=== PATIENT | female | born 1985 | race Caucasian/White ===

== ENCOUNTER → 2022-11-12 10:06 | Outpatient (CLI) | payer MEDICAID, SELFPAY ==
--- NOTE | 2022-11-12 10:30 | XR_ITS ---
FINAL REPORT CLINICAL HISTORY: Neck pain FINDINGS: CERVICAL SPINE Seven views were obtained including flexion and extension views. There is no acute fracture. There is no malalignment. There is no abnormal movement with flexion or extension. The disc spaces are preserved. There is no soft tissue abnormality. IMPRESSION: No acute bony abnormality. No abnormal movement with flexion or extension. Reviewed, Interpreted and Dictated by Leandro Rubi III, MD Transcribed by Keyana Billingsley Authenticated and . [facility]
[2022-11-16 22:04] LABS: Antinuclear Antibodies (ANA) NEGATIVE
== END ==
PROVIDERS: PCP Nurse Practitioner Family; Visit Provider Nurse Practitioner Family
DX: G47.9 Sleep disorder, unspecified (principal); G43.109 Migraine with aura, not intractable, without status migrainosus; G44.40 Drug-induced headache, not elsewhere classified, not intractable; G44.86 Cervicogenic headache; F41.9 Anxiety disorder, unspecified; G89.29 Other chronic pain; M54.2 Cervicalgia; R53.83 Other fatigue; Z72.0 Tobacco use
CPT/HCPCS: 36415; 72052; 86038; G0399

== ENCOUNTER 2022-12-04 14:00 | Outpatient (RCR) | payer MEDICAID, SELFPAY ==
--- NOTE | 2022-11-04 17:29 | HMH.PTOPEV ---
PT Outpatient Evaluation Rehab PT Outpatient Evaluation Start: 11/04/22 17:15 Freq: Status: Active Protocol: Document 11/04/22 17:16 JOYCELYN (Rec: 11/04/22 17:28 JOYCELYN [id number]) E-signed By Will Powell, PT Outpatient Therapy Subjective History Subjective History Patient is a 37 year old female presenting to outpatient PT with reports of chronic cervical spine pain with associated cervicogenic headaches of insidious onset starting approx 2 years ago. Patient reports daily frequency of headaches. Patient reports that most recent imaging indicates pseudotumor (no reports on file). Comorbidites include hx of HTN, cholecystectomy and anxiety. Chief Complaint Pain,Stiff Symptom Type Throb Symptoms Relieved By Rest/Positioning,Heat,OTC Meds Symptoms Aggravated By Physical Activity,Lifting Prior Functional Limitations None Current Functional Limitations Reaching,Lifting,Housework Symptom Description Constant but Variable Level of pain today (0-10) 2 Pain scale - at its best (0-10) 2 Pain scale - at its worst (0-10) 5 Cervical Eval Palpation Cervical Muscles R Suboccipital,L Suboccipital Posture Head/C-Spine Posture Sitting Position C-Spine Flattened Head/C-Spine Posture Standing Position C-Spine Flattened Flexibility Deficits Upper Trapezius Muscle Length (R) Mild Tightness,(L) Mild Tightness Pectoralis Minor Muscle Length (R) Mild Tightness,(L) Mild Tightness Passive Joint Mobility Cervical PIVM WNL: R OA L OA R AA L AA R C2/3 L C2/3 R C3/4 L C3/4 R C4/5 L C4/5 R C5/6 L C5/6 R C6/7 L C6/7 R C7/T1 L C7/T1 AROM Cervical Spine Extension Active Range of 54 Motion (degrees) Cervical Spine Flexion Active Range of 42 Motion (degrees)
== END 2022-12-04 14:05 | disposition home or self-care (01) ==
LOC: PT 14:00
PROVIDERS: Visit Provider Nurse Practitioner Family
DX: G43.109 Migraine with aura, not intractable, without status migrainosus (principal); M54.2 Cervicalgia; G44.86 Cervicogenic headache; G89.29 Other chronic pain; F41.9 Anxiety disorder, unspecified
CPT/HCPCS: 97010; 97014; 97035; 97110; 97140; 97163; G0283

== ENCOUNTER 2023-11-06 09:43 | Emergency (ER) | payer MEDICAID, SELFPAY ==
[2023-11-06 11:15] VITALS: BP 114/86; PULSE 114; RESP 21; TEMP 37; O2SAT 98; BMI 38.0
[2023-11-06 11:33] VITALS: BP 114/86; PULSE 114; RESP 21; TEMP 37; O2SAT 98
[2023-11-06 11:35] LABS: UTC Influenza A Antigen Negative (Negative); UTC Influenza B Antigen Negative (Negative)
--- NOTE | 2023-11-06 12:06 | EXP.UTC ---
Discharge Plan Disposition Patient Disposition: Home, Self-Care Condition: Good Prescriptions Prescriptions: New otwrjwcwzxlfxxb-ovfxpnqtr-MR [Bromfed DM] 2-30-10 mg/5 mL syrup 10 ml PO Q6H PRN (Reason: cold symptoms) Qty: 200 0RF No Action medroxyprogesterone 150 mg/mL suspension 150 mg IM ONCE Patient Comments: INJECT 150 MG BY INTRAMUSCULAR ROUTE EVERY 12 WEEKS duloxetine 30 mg capsule,delayed release(DR/EC) 30 mg PO DAILY Patient Comments: TAKE ONE CAPSULE BY MOUTH TWICE DAILY FOR 30 DAYS Ubrelvy 100 mg tablet 100 mg PO DAILY Patient Comments: Take ONE tablet by MOUTH AT ONSET of symptoms, MAY REPEAT AFTER TWO hours if symptoms persist. Max DOSE TWO tablets in 24 hours Ajovy Autoinjector 225 mg/1.5 mL auto-injector 225 mg SQ MONTHLY Patient Comments: inject 1.5ml UNDER THE SKIN every MONTH Referrals Follow up/Referrals: Nohemi Brennan APRN [Primary Care Provider] - See instructions Clinical Impressions Clinical Impression: Acute upper respiratory infection Instructions Patient Instructions: DI for Viral Upper Respiratory Infection -- Adult Discharge ED Provider: Fabiola Mcguire [facility] General Stated complaint: fever/chills, cough, congestion, body aches Mode of Arrival: Ambulatory Source of Information: Patient Limitations: No Limitations Time Seen by Provider: 11/06/23 11:49 Description of Symptoms (Recalled from Triage Doc. by RN): PATIENT C/O COUGH, FEVER, CHILLS, BODY ACHES, AND HEADACHE X 2 DAYS. 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 She states that she ran a fever of 102 last night and has been taking Tylenol/Ibuprofen for her symptoms. She states that she has had a cough, clear runny nose, and body aches. Related Data Home Medications Medication Instructions Recorded Confirmed duloxetine 30 mg capsule,delayed 30 mg PO DAILY 11/06/23 11/06/23 release fremanezumab-vfrm 225 mg/1.5 mL 225 mg SQ MONTHLY 11/06/23 11/06/23 subcutaneous auto-injector (Ajovy) medroxyprogesterone 150 mg/mL 150 mg IM ONCE 11/06/23 11/06/23 intramuscular suspension ubrogepant 100 mg tablet (Ubrelvy) 100 mg PO DAILY 11/06/23 11/06/23 Previous Rx's Medication Instructions Recorded kzmpecahzwkyloe-afgxmieejgyiubq-QF 10 ml PO Q6H PRN cold symptoms 11/06/23 2 mg-30 mg-10 mg/5 mL oral syrup #200 mL (Bromfed DM) Allergies Allergy/AdvReac Type Severity Reaction Status Date / Time azithromycin Allergy Verified 11/06/23 11:32 Penicillins Allergy Verified 09/28/23 14:31 Worker's Comp Is this a Worker's Comp case?: No [facility] Disclaimer: The information contained in this section may have been updated after the patient was seen, as this information can be updated by other users. Surgical History Hx of cholecystectomy Family History (Updated 09/28/23 @ 14:35 by Linn Hammond) Other Diabetes Social History Smoking Status: Current every day smoker tobacco type: cigarettes packs per day: 1 alcohol intake: never substance use type: denies use current occupational status: employed Travel in the last 8 weeks: None household members: spouse housing: house marital status: ROS Obtained: Yes All systems reviewed & no additional complaints except as documented Constitutional Constitutional: Reports system reviewed and no additional complaints, except as documented, Reports body ache, Reports fever(s), Reports headache(s) and Reports malaise Eyes Eyes: Reports sy
[2023-11-06 12:42] LABS: Adenovirus,PCR Not Detected (NotDetected); Coronavirus 229E Not Detected (NotDetected); Coronavirus NL63 Not Detected (NotDetected); Coronavirus OC43 Not Detected (NotDetected); Coronovirus HKU1,PCR Not Detected (NotDetected); Human Metapneumovirus Not Detected (NotDetected); Influenza A, PCR Not Detected (NotDetected); Influenza AH1, 2009 Not Detected (NotDetected); Influenza AH1, PCR Not Detected (NotDetected); Influenza AH3,PCR Not Detected (NotDetected); Influenza B, PCR Not Detected (NotDetected); Parainfluenza 1, PCR Not Detected (NotDetected); Parainfluenza 2, PCR Not Detected (NotDetected); Parainfluenza 3, PCR Not Detected (NotDetected); Parainfluenza 4, PCR Not Detected (NotDetected); Respiratory Syncytial Virus Not Detected (NotDetected); Rhinovirus/Enterovirus Not Detected (NotDetected)
[2023-11-06 15:31] LABS: Coronavirus 19, PCR Detected (NotDetected)
== END 2023-11-06 12:14 | disposition home or self-care (01) ==
PROVIDERS: Emergency Provider Nurse Practitioner Family; PCP Nurse Practitioner Family
DX: U07.1 COVID-19 (principal); R50.9 Fever, unspecified; R51.9 Headache, unspecified; R05.9 Cough, unspecified; R09.81 Nasal congestion; R07.0 Pain in throat; M79.18 Myalgia, other site; R53.81 Other malaise; F17.210 Nicotine dependence, cigarettes, uncomplicated
CPT/HCPCS: 87632; 87635; 87804; 99204; 99212; G0463